=== PATIENT | male | born 1945 | race Native Hawaiian/Other Pacific Islander ===

== ENCOUNTER 2016-10-16 07:58 | Outpatient (CLI) | payer OTHER, MEDICARE ==
[2016-10-16 09:12] LABS: PLATELET COUNT 207 K/uL (142-355)
== END 2016-10-16 22:08 | disposition home or self-care (01) ==
LOC: LABW 07:58
PROVIDERS: Nurse Practitioner Family
DX: D64.89 Other specified anemias (principal)
CPT/HCPCS: 36415; 85027

== ENCOUNTER 2016-10-18 07:28 | Outpatient (CLI) | payer OTHER, MEDICARE ==
[2016-10-18 07:41] LABS: PLATELET COUNT 211 K/uL (142-355)
== END 2016-10-18 19:05 | disposition home or self-care (01) ==
LOC: LABW 07:28
PROVIDERS: Surgery Vascular Surgery
DX: Z01.812 Encounter for preprocedural laboratory examination (principal); R79.9 Abnormal finding of blood chemistry, unspecified
CPT/HCPCS: 36415; 85027

== ENCOUNTER 2016-10-23 14:15 | Outpatient (CLI) | payer OTHER, MEDICARE ==
[2016-10-23 14:41] LABS: PLATELET COUNT 393 K/uL (142-355)
== END 2016-10-23 23:07 | disposition home or self-care (01) ==
LOC: LABW 14:15
PROVIDERS: Nurse Practitioner Family
DX: D64.89 Other specified anemias (principal)
CPT/HCPCS: 36415; 85027

== ENCOUNTER 2016-11-15 16:59 | Outpatient (CLI) | payer OTHER, MEDICARE ==
[2016-11-15 18:58] LABS: PLATELET COUNT 354 K/uL (142-355)
== END 2016-11-15 17:59 | disposition home or self-care (01) ==
LOC: LAB 16:59
PROVIDERS: Nurse Practitioner Family
DX: D64.89 Other specified anemias (principal)
CPT/HCPCS: 85027

== ENCOUNTER 2016-12-14 12:36 | Outpatient (CLI) | payer OTHER, MEDICARE ==
[2016-12-14 12:42] LABS: PLATELET COUNT 392 K/uL (142-355)
== END 2016-12-14 13:36 | disposition home or self-care (01) ==
LOC: LAB 12:36
PROVIDERS: Nurse Practitioner Family
DX: D50.8 Other iron deficiency anemias (principal)
CPT/HCPCS: 85027

== ENCOUNTER 2017-03-01 08:48 | Outpatient (CLI) | payer OTHER, MEDICARE ==
[2017-03-01 09:03] LABS: PLATELET COUNT 359 K/uL (142-355)
== END 2017-03-01 19:15 | disposition home or self-care (01) ==
LOC: LABW 08:48
PROVIDERS: Nurse Practitioner Family
DX: D64.89 Other specified anemias (principal)
CPT/HCPCS: 36415; 85027

== ENCOUNTER 2017-03-22 14:40 | Outpatient (CLI) | payer OTHER, MEDICARE ==
[2017-03-22 15:04] LABS: PLATELET COUNT 296 K/uL (142-355)
== END 2017-03-22 20:05 | disposition home or self-care (01) ==
LOC: LABW 14:40
PROVIDERS: Nurse Practitioner Family
DX: D64.89 Other specified anemias (principal)
CPT/HCPCS: 36415; 85027

== ENCOUNTER 2017-04-04 09:56 | Outpatient (CLI) | payer OTHER, MEDICARE ==
[2017-04-04 10:08] LABS: PLATELET COUNT 307 K/uL (142-355)
== END 2017-04-04 19:02 | disposition home or self-care (01) ==
LOC: LABW 09:56
PROVIDERS: Nurse Practitioner Family
DX: D64.89 Other specified anemias (principal)
CPT/HCPCS: 36415; 85027

== ENCOUNTER 2017-04-04 12:20 | Emergency (ER) | payer OTHER, MEDICARE ==
[~2017-04-04] VITALS: Ht 170.2 cm; Wt 79.4 kg
[2017-04-04 12:47] VITALS: TEMP 99
[2017-04-04 13:31] LABS: PLATELET COUNT 312 K/uL (142-355)
[2017-04-04 13:43] LABS: POTASSIUM 4.2 mmol/L (3.6-5.2); SODIUM 135 mmol/L (136-145)
[2017-04-04 13:59] LABS: PARTIAL THROMBOPLASTIN TIME 24.6 SECONDS (24.5-33.6)
[2017-04-04 17:07] VITALS: BP 100/72
== END 2017-04-05 02:58 | disposition still patient (30) ==
LOC: ED 12:20
PROC: 30233N1 Transfusion of Nonautologous Red Blood Cells into Peripheral Vein, Percutaneous Approach (ICD-10-PCS; principal; 2017-04-04)
DX: D64.89 Other specified anemias (principal); K92.2 Gastrointestinal hemorrhage, unspecified
CPT/HCPCS: 36415; 80053; 82553; 84484; 85027; 85610; 85730; 86850; 86900; 86901; 86922; 93005; 99283; J1940; P9016

== ENCOUNTER 2017-04-05 11:21 | Outpatient (CLI) | payer OTHER, MEDICARE | END 2017-04-05 17:54 | disposition home or self-care (01) | LOC: LABW 11:21 | DX: D64.89 Other specified anemias (principal) | CPT/HCPCS: 36415; 85014; 85018 ==

== ENCOUNTER 2017-05-10 09:44 | Outpatient (CLI) | payer OTHER, MEDICARE ==
[2017-05-10 10:51] LABS: PLATELET COUNT 359 K/uL (142-355)
== END 2017-05-10 10:45 | disposition home or self-care (01) ==
LOC: LABW 09:44
PROVIDERS: Nurse Practitioner Family
DX: D64.89 Other specified anemias (principal)
CPT/HCPCS: 36415; 85027

== ENCOUNTER 2017-05-14 07:07 | Outpatient (CLI) | payer OTHER, MEDICARE ==
[2017-05-14 08:14] LABS: PLATELET COUNT 312 K/uL (142-355)
== END 2017-05-14 08:10 | disposition home or self-care (01) ==
LOC: LABW 07:07
DX: D50.8 Other iron deficiency anemias (principal)
CPT/HCPCS: 36415; 85027

== ENCOUNTER 2017-05-16 08:00 | Outpatient (CLI) | payer OTHER, MEDICARE ==
[2017-05-15 08:26] LABS: PLATELET COUNT 320 K/uL (142-355)
[2017-05-15 09:45] VITALS: BP 133/61; TEMP 97.8
[~2017-05-16] VITALS: Ht 170.2 cm; Wt 69.9 kg
== END 2017-05-16 19:50 | disposition home or self-care (01) ==
LOC: INF 08:00
PROVIDERS: Internal Medicine
PROC: 30233N1 Transfusion of Nonautologous Red Blood Cells into Peripheral Vein, Percutaneous Approach (ICD-10-PCS; principal; 2017-05-16)
DX: D64.89 Other specified anemias (principal)
CPT/HCPCS: 36415; 36430; 85027; 86850; 86870; 86900; 86901; 86922; 96374; 96375; J1940; J2405; P9016

== ENCOUNTER 2017-05-17 11:12 | Outpatient (CLI) | payer OTHER, MEDICARE ==
[2017-05-17 11:25] LABS: PLATELET COUNT 288 K/uL (142-355)
== END 2017-05-17 19:32 | disposition home or self-care (01) ==
LOC: LABW 11:12
PROVIDERS: Internal Medicine
DX: D50.8 Other iron deficiency anemias (principal)
CPT/HCPCS: 36415; 85027

== ENCOUNTER 2017-06-19 08:44 | Inpatient (IN) | payer OTHER, MEDICARE ==
[~2017-06-19] VITALS: Ht 170.2 cm; Wt 78.5 kg
[2017-06-19 13:00] VITALS: BP 122/52; TEMP 98.2; Ht 170.2 cm; Wt 78.5 kg
[2017-06-19] MEDS ORDERED: [UNRECOGNIZED DRUG - CODE] EX (14:51)
[2017-06-19] MEDS ORDERED: ASA LOW DOSE81 MG OR (14:52)
[2017-06-19] MEDS ORDERED: LIPITOR80 MG PO (14:56)
[2017-06-19] MEDS ORDERED: VITAMIN B-121000 MCG PO (14:59)
[2017-06-19] MEDS ORDERED: CARDIZEM60 MG PO (15:02)
[2017-06-19] MEDS ORDERED: FOLI1TAB26 PO (15:03)
[2017-06-19] MEDS ORDERED: PROTONIX20 MG PO (15:05)
[2017-06-19] MEDS ORDERED: DOCU100C10 PO (15:12)
[2017-06-19] MEDS ORDERED: MIRALAX3350 N1 OR (15:14)
[2017-06-19 16:00] VITALS: BP 111/65; TEMP 98.3
[2017-06-19] MEDS ORDERED: PREDNISONE1 MG OR (18:55)
[2017-06-19] MEDS ORDERED: FE GLUCONATE325 MG OR (18:56)
[2017-06-19] MEDS ORDERED: LOSA50TA PO (18:56)
[2017-06-19] MEDS ORDERED: DULOXETINE HCL30 MG PO (18:57)
[2017-06-19] MEDS ORDERED: BLOOMIS59 PO (19:01)
[2017-06-19 20:00] VITALS: BP 122/70; TEMP 98.5
[2017-06-20] VITALS: BP 132/65; TEMP 97.5
[2017-06-20 04:00] VITALS: BP 121/74; TEMP 98.1
[2017-06-20 08:00] VITALS: BP 155/76; TEMP 98.6
[2017-06-20 12:00] VITALS: BP 152/74; TEMP 98
[2017-06-20 14:35] LABS: PLATELET COUNT 250 K/uL (142-355)
[2017-06-20] MEDS ORDERED: AMOX500T5 PO (15:17)
[2017-06-20] MEDS ORDERED: MECLIZINE25 MG OR (15:21)
[2017-06-20] MEDS ORDERED: AMOXICILLIN250 M2 PO (15:28)
[2017-06-20 16:00] VITALS: BP 114/74; TEMP 98
[2017-06-20 20:26] VITALS: BP 123/58; TEMP 98.3
== END 2017-06-20 22:45 | disposition home or self-care (01) | DRG 812 ==
LOC: LABW 08:44 → MED/SURG 11:40
PROVIDERS: ADMIT Family Medicine
PROC: 30233N1 Transfusion of Nonautologous Red Blood Cells into Peripheral Vein, Percutaneous Approach (ICD-10-PCS; principal; 2017-06-20)
DX: D64.89 Other specified anemias (principal); L03.113 Cellulitis of right upper limb; R06.02 Shortness of breath
CPT/HCPCS: 36415; 36430; 36591; 85014; 85018; 85027; 86850; 86870; 86900; 86901; 86922; 93005; P9016

== ENCOUNTER 2017-06-21 10:52 | Outpatient (CLI) | payer OTHER, MEDICARE ==
[~2017-06-21 10:52] MED LIST: AMOX500T5 PO; AMOXICILLIN250 M2 PO; ASA LOW DOSE81 MG OR; BLOOMIS59 PO; CARDIZEM60 MG PO; DOCU100C10 PO; DULOXETINE HCL30 MG PO; FE GLUCONATE325 MG OR; FOLI1TAB26 PO; LIPITOR80 MG PO; LOSA50TA PO; MECLIZINE25 MG OR; MIRALAX3350 N1 OR; PREDNISONE1 MG OR; PROTONIX20 MG PO; VITAMIN B-121000 MCG PO; [UNRECOGNIZED DRUG - CODE] EX
[2017-06-21 11:08] LABS: PLATELET COUNT 260 K/uL (142-355)
== END 2017-06-21 21:56 | disposition home or self-care (01) ==
LOC: LABW 10:52
PROVIDERS: Nurse Practitioner Family
DX: D64.89 Other specified anemias (principal)
CPT/HCPCS: 36415; 85027

== ENCOUNTER 2017-10-04 13:52 | Outpatient (CLI) | payer OTHER, MEDICARE | END 2017-10-04 22:41 | disposition home or self-care (01) | LOC: LABW 13:52 | DX: D64.89 Other specified anemias (principal); M54.42 Lumbago with sciatica, left side; M54.41 Lumbago with sciatica, right side | CPT/HCPCS: 36415; 80053; 85014; 85018; 85027 ==

== ENCOUNTER 2017-10-04 15:52 | Outpatient (CLI) | payer OTHER, MEDICARE ==
[2017-10-04 16:54] LABS: PLATELET COUNT 314 K/uL (142-355)
[2017-10-04 17:19] LABS: POTASSIUM 4.3 mmol/L (3.6-5.2); SODIUM 135 mmol/L (136-145)
== END 2017-10-04 22:42 | disposition home or self-care (01) ==
LOC: LABW 15:52
PROVIDERS: Nurse Practitioner Family
DX: M54.42 Lumbago with sciatica, left side (principal); M54.41 Lumbago with sciatica, right side; D64.89 Other specified anemias
CPT/HCPCS: 36415; 80053; 85027

== ENCOUNTER 2017-10-10 03:47 | Outpatient (CLI) | payer OTHER, MEDICARE ==
[2017-10-11] MEDS ORDERED: VITAMIN B-121000 MC2 PO (01:41)
== END 2017-10-10 05:20 | disposition short-term general hospital (02) ==
LOC: AMB 03:47
DX: I63.8 Other cerebral infarction (principal); D64.89 Other specified anemias; R73.9 Hyperglycemia, unspecified
CPT/HCPCS: A0425; A0427

== ENCOUNTER 2017-10-10 18:02 | Observation (INO) | payer OTHER, MEDICARE ==
[~2017-10-10] VITALS: Ht 170.2 cm; Wt 86.2 kg
[2017-10-10] VITALS (7 sets, daily range): BP systolic 123–143; BP diastolic 54–83; TEMP 98.3–98.7; Ht 170.2 cm; Wt 86.2 kg
[2017-10-10 18:41] LABS: POTASSIUM 4.5 mmol/L (3.6-5.2); SODIUM 134 mmol/L (136-145)
[2017-10-10 18:50] LABS: PARTIAL THROMBOPLASTIN TIME 23.4 SECONDS (24.5-33.6)
[2017-10-10 18:55] LABS: PLATELET COUNT 372 K/uL (142-355)
--- NOTE | 2017-10-10 20:44 | NUR ---
PATIENT RECEIVED FROM ER VIA WC. ALERT AND ORIENTED X 3. PATIENT GIVEN EDUCATION REGARDING BED CONTROLS AND CALL LIGHT. INSTRUCTED TO KEEP BED IN LOW POSITION. 20G SL INTACT TO RAC AND PATENT. 18G SL INTACT TO LAC AND PATENT. AT BEDSIDE.
[2017-10-11 00:04] VITALS: BP 123/54; TEMP 98.7
[2017-10-11] MEDS ORDERED: VITAMIN B-121000 MC2 PO (01:41)
--- NOTE | 2017-10-11 03:45 | NUR ---
PATIENT TRANSFERRED TO [facility] PER EMS IN SATISFACTORY CONDITION. ACCOMPANIED PATIENT.
== END 2017-10-11 03:45 | disposition short-term general hospital (02) ==
LOC: ED 18:02 → MED/SURG 19:30
DX: I63.8 Other cerebral infarction (principal); D64.89 Other specified anemias; R73.9 Hyperglycemia, unspecified
CPT/HCPCS: 36415; 80053; 82550; 82962; 84484; 85027; 85610; 85730; 86850; 86900; 86901; 86922; 93005; 96374; 99220; 99284; G0378; J2060; J2405; J3490

== ENCOUNTER 2017-11-05 11:53 | Outpatient (CLI) | payer OTHER, MEDICARE ==
[~2017-11-05 11:53] MED LIST changes: +VITAMIN B-121000 MC2 PO
== END 2017-11-05 20:26 | disposition home or self-care (01) ==
LOC: LABW 11:53
DX: D64.89 Other specified anemias (principal)
CPT/HCPCS: 36415; 85014; 85018

== ENCOUNTER 2017-11-19 08:36 | Outpatient (CLI) | payer OTHER, MEDICARE ==
[2017-11-19 08:53] LABS: PLATELET COUNT 265 K/uL (142-355)
[2017-11-19 09:57] LABS: POTASSIUM 4.4 mmol/L (3.6-5.2)
== END 2017-11-19 19:35 | disposition home or self-care (01) ==
LOC: LABW 08:36
PROVIDERS: Internal Medicine Cardiovascular Disease
DX: I10 Essential (primary) hypertension (principal)
CPT/HCPCS: 36415; 80053; 80061; 82550; 85027

== ENCOUNTER 2018-02-06 12:41 | Outpatient (CLI) | payer OTHER, MEDICARE ==
[2018-02-06 12:57] LABS: PLATELET COUNT 329 K/uL (142-355)
== END 2018-02-06 21:30 | disposition home or self-care (01) ==
LOC: LABW 12:41
PROVIDERS: Internal Medicine Cardiovascular Disease
DX: D63.8 Anemia in other chronic diseases classified elsewhere (principal); I10 Essential (primary) hypertension
CPT/HCPCS: 36415; 85027

== ENCOUNTER 2018-02-13 12:33 | Outpatient (CLI) | payer OTHER, MEDICARE ==
[2018-02-13 12:49] LABS: PLATELET COUNT 275 K/uL (142-355)
[2018-02-13 13:00] LABS: POTASSIUM 4.4 mmol/L (3.6-5.2)
== END 2018-02-13 22:00 | disposition home or self-care (01) ==
LOC: LABW 12:33
PROVIDERS: Internal Medicine Cardiovascular Disease
DX: I10 Essential (primary) hypertension (principal); I25.10 Atherosclerotic heart disease of native coronary artery without angina pectoris; E78.89 Other lipoprotein metabolism disorders
CPT/HCPCS: 36415; 80053; 85027

== ENCOUNTER 2018-04-18 15:58 | Outpatient (CLI) | payer OTHER, MEDICARE ==
[2018-04-18 16:11] LABS: PLATELET COUNT 247 K/uL (142-355)
== END 2018-04-18 22:55 | disposition home or self-care (01) ==
LOC: LAB 15:58
PROVIDERS: Nurse Practitioner Family
DX: D64.89 Other specified anemias (principal)
CPT/HCPCS: 85027

== ENCOUNTER 2018-05-01 07:59 | Outpatient (CLI) | payer OTHER, MEDICARE | END 2018-05-01 22:09 | disposition home or self-care (01) | LOC: CT 07:59 | DX: I70.222 Atherosclerosis of native arteries of extremities with rest pain, left leg (principal) | CPT/HCPCS: 36415; 82565; 84520 ==

== ENCOUNTER 2018-06-10 14:30 | Outpatient (CLI) | payer OTHER, MEDICARE | END 2018-06-10 23:24 | disposition home or self-care (01) | LOC: LABW 14:30 | DX: D64.9 Anemia, unspecified (principal) | CPT/HCPCS: 36415; 85014; 85018 ==

== ENCOUNTER 2018-07-02 11:21 | Outpatient (CLI) | payer OTHER, MEDICARE ==
[2018-07-02 11:46] LABS: PLATELET COUNT 286 K/uL (142-355)
[2018-07-02 12:24] LABS: POTASSIUM 4.9 mmol/L (3.6-5.2)
== END 2018-07-02 23:05 | disposition home or self-care (01) ==
LOC: LABW 11:21
PROVIDERS: Internal Medicine Cardiovascular Disease
DX: I49.8 Other specified cardiac arrhythmias (principal); R73.09 Other abnormal glucose; I25.10 Atherosclerotic heart disease of native coronary artery without angina pectoris
CPT/HCPCS: 36415; 80053; 80061; 82550; 83036; 84443; 85027

== ENCOUNTER 2018-10-28 18:28 | Outpatient (CLI) | payer OTHER | END 2018-10-28 18:46 | disposition short-term general hospital (02) | LOC: AMB 18:28 | DX: M25.551 Pain in right hip (principal); Z91.81 History of falling | CPT/HCPCS: A0425; A0427 ==

== ENCOUNTER 2018-10-28 18:48 | Emergency (ER) | payer OTHER ==
[~2018-10-28] VITALS: Ht 170.2 cm; Wt 80.7 kg
[2018-10-28 20:47] LABS: PLATELET COUNT 198 K/uL (142-355)
[2018-10-28 21:01] LABS: POTASSIUM 4.4 mmol/L (3.6-5.2)
[2018-10-28 22:38] VITALS: BP 128/76; TEMP 98.5
== END 2018-10-28 23:12 | disposition home or self-care (01) ==
LOC: ED 18:48
PROVIDERS: Family Medicine
DX: M79.631 Pain in right forearm (principal); M25.551 Pain in right hip; D64.89 Other specified anemias; W18.39XA Other fall on same level, initial encounter; Y92.89 Other specified places as the place of occurrence of the external cause
CPT/HCPCS: 36415; 80053; 81000; 85027; 99283

== ENCOUNTER 2018-10-30 14:18 | Outpatient (CLI) | payer OTHER | END 2018-10-30 15:51 | disposition short-term general hospital (02) | LOC: AMB 14:18 | DX: M79.631 Pain in right forearm (principal); M25.551 Pain in right hip; D64.89 Other specified anemias; W18.39XA Other fall on same level, initial encounter; Y92.89 Other specified places as the place of occurrence of the external cause | CPT/HCPCS: A0425; A0429 ==

== ENCOUNTER 2019-02-20 14:36 | Outpatient (CLI) | payer OTHER, MEDICARE | END 2019-02-20 20:49 | disposition home or self-care (01) | LOC: LABW 14:36 | DX: D64.89 Other specified anemias (principal) | CPT/HCPCS: 36415; 85014; 85018 ==

== ENCOUNTER 2019-03-31 11:16 | Outpatient (CLI) | payer OTHER, MEDICARE ==
[~2019-03-31 11:16] MED LIST changes: -ASA LOW DOSE81 MG OR; +ASA LOW DOSE81 MG PO; -PREDNISONE1 MG OR; +PREDNISONE1 MG PO
[2019-03-31] MEDS ORDERED: SENNOSIDES8.6 MG PO (21:30)
[2019-03-31] MEDS ORDERED: OXYC5TAB53 PO (21:34)
[2019-04-01] MEDS ORDERED: IRON325 MG PO (04:12)
[2019-04-01] MEDS ORDERED: SOTALOL HCL120 MG PO (04:27)
== END 2019-03-31 23:42 | disposition home or self-care (01) ==
LOC: LAB 11:16
DX: D64.9 Anemia, unspecified (principal); R53.83 Other fatigue; S91.301A Unspecified open wound, right foot, initial encounter
CPT/HCPCS: 85014; 85018

== ENCOUNTER 2019-03-31 14:46 | Inpatient (IN) | payer OTHER, MEDICARE ==
[~2019-03-31] VITALS: Ht 170.2 cm; Wt 69.5 kg
[2019-03-31] VITALS (9 sets, daily range): BP systolic 99–145; BP diastolic 43–77; TEMP 98.1–98.7; Ht 170.2 cm; Wt 69.5 kg
[2019-03-31 16:21] LABS: PLATELET COUNT 253 K/uL (142-355)
[2019-03-31 16:33] LABS: POTASSIUM 4.3 mmol/L (3.6-5.2)
[2019-03-31 16:43] LABS: PARTIAL THROMBOPLASTIN TIME 20.2 SECONDS (24.5-33.6)
[2019-03-31] MEDS ORDERED: SENNOSIDES8.6 MG PO (21:30)
[2019-03-31] MEDS ORDERED: OXYC5TAB53 PO (21:34)
[2019-04-01] VITALS (24 sets, daily range): BP systolic 132–165; BP diastolic 52–92; TEMP 98–98.9
[2019-04-01] MEDS ORDERED: IRON325 MG PO (04:12)
[2019-04-01] MEDS ORDERED: SOTALOL HCL120 MG PO (04:27)
[2019-04-01 16:21] LABS: PLATELET COUNT 199 K/uL (142-355)
[2019-04-01 16:49] LABS: POTASSIUM 3.9 mmol/L (3.6-5.2)
[2019-04-02] VITALS (8 sets, daily range): BP systolic 136–162; BP diastolic 67–82; TEMP 97.4–99.1
[2019-04-02 05:19] LABS: PLATELET COUNT 217 K/uL (142-355)
[2019-04-02 05:33] LABS: POTASSIUM 4.1 mmol/L (3.6-5.2)
[2019-04-03] VITALS: BP 145/79; TEMP 98.9
[2019-04-03 04:00] VITALS: TEMP 98.8
[2019-04-03 08:00] VITALS: BP 159/77; TEMP 98.7
[2019-04-03 08:11] LABS: PLATELET COUNT 204 K/uL (142-355)
[2019-04-03 08:31] LABS: POTASSIUM 3.8 mmol/L (3.6-5.2)
[2019-04-03 12:00] VITALS: BP 159/71; TEMP 98.2
== END 2019-04-03 14:25 | disposition home or self-care (01) | DRG 812 ==
LOC: ED 14:46 → ICU 18:30 → MED/SURG 04-02 10:45
PROVIDERS: Family Medicine; Hospitalist; ADMIT Internal Medicine
PROC: 30233N1 Transfusion of Nonautologous Red Blood Cells into Peripheral Vein, Percutaneous Approach (ICD-10-PCS; 2019-03-31)
PROC: 30233N1 Transfusion of Nonautologous Red Blood Cells into Peripheral Vein, Percutaneous Approach (ICD-10-PCS; principal; 2019-04-01)
DX: D62 Acute posthemorrhagic anemia (principal); T45.515A Adverse effect of anticoagulants, initial encounter; I95.89 Other hypotension; I25.10 Atherosclerotic heart disease of native coronary artery without angina pectoris; E78.00 Pure hypercholesterolemia, unspecified; Z86.73 Personal history of transient ischemic attack (TIA), and cerebral infarction without residual deficits; R42 Dizziness and giddiness; D64.89 Other specified anemias; Y92.238 Other place in hospital as the place of occurrence of the external cause; Q27.33 Arteriovenous malformation of digestive system vessel; J44.9 Chronic obstructive pulmonary disease, unspecified; I10 Essential (primary) hypertension; Z89.421 Acquired absence of other right toe(s); I49.8 Other specified cardiac arrhythmias; I48.91 Unspecified atrial fibrillation
CPT/HCPCS: 36415; 80048; 80053; 81000; 82150; 82272; 83690; 85027; 85610; 85730; 86850; 86900; 86901; 86922; 93005; 94760; 96360; 96361; 99285; J2405; P9016

== ENCOUNTER 2019-04-14 12:57 | Outpatient (CLI) | payer OTHER, MEDICARE ==
[~2019-04-14 12:57] MED LIST changes: +IRON325 MG PO; +OXYC5TAB53 PO; +SENNOSIDES8.6 MG PO; +SOTALOL HCL120 MG PO
[2019-04-14 13:29] LABS: PLATELET COUNT 414 K/uL (142-355)
[2019-04-14 13:46] LABS: POTASSIUM 5.3 mmol/L (3.6-5.2)
== END 2019-04-14 22:50 | disposition home or self-care (01) ==
LOC: LAB 12:57
PROVIDERS: Nurse Practitioner Family
DX: I25.10 Atherosclerotic heart disease of native coronary artery without angina pectoris (principal); I69.351 Hemiplegia and hemiparesis following cerebral infarction affecting right dominant side; L97.811 Non-pressure chronic ulcer of other part of right lower leg limited to breakdown of skin
CPT/HCPCS: 80053; 85027

== ENCOUNTER 2019-06-03 12:27 | Outpatient (CLI) | payer OTHER, MEDICARE ==
[~2019-06-03] VITALS: Ht 170.2 cm; Wt 63.5 kg
[2019-06-03 13:00] LABS: PLATELET COUNT 325 K/uL (142-355)
[2019-06-04 09:45] VITALS: BP 119/65; TEMP 97.7
== END 2019-06-04 16:26 | disposition home or self-care (01) ==
LOC: INF 12:27 → LAB 12:27 → LABW 12:27 → INF 06-04 16:26
PROVIDERS: Nurse Practitioner Family
DX: D64.9 Anemia, unspecified (principal)
CPT/HCPCS: 36430; 85027; 86850; 86900; 86901; 86922; P9016

== ENCOUNTER 2019-07-03 11:41 | Outpatient (CLI) | payer OTHER, MEDICARE | END 2019-07-03 23:24 | disposition home or self-care (01) | LOC: LABW 11:41 | DX: Z86.2 Personal history of diseases of the blood and blood-forming organs and certain disorders involving the immune mechanism (principal) | CPT/HCPCS: 36415; 85014; 85018 ==